=== PATIENT | male | born 1950 | race Two or more races ===

== ENCOUNTER 2018-12-13 04:21 | Inpatient (IN) | payer OTHER ==
[~2018-12-13] VITALS: Ht 170.2 cm; Wt 62.1 kg
[~2018-12-13 04:21] MED LIST: ASACOL HD800 MG
[2018-12-13] MEDS ORDERED: PROTONIX40 MG PO (04:48)
--- NOTE | 2018-12-13 04:49 | NUR ---
PT ALERTA Y ORIENTADO X3, REFIERE DOLOR EN FLANCO RT Y RLQ DESDE HACE 3 TREVINO. REFIERE HERMINIA VISITADO LERNER GASTROENTEROLOGO MOOSE EL PACO DE MAKENNA Y HERMINIA RECIBIDO [place], REFIERE NO TENER MEJORIA Y DOLOR CONWAY AUMENTADO. REFIERE ARDOR AL ORINAR.
--- NOTE | 2018-12-13 05:33 | NUR ---
PACIENTE ALERTA Y ORIENTADO X3, CON BUEN PATRON RESPIRATORIO Y SIGNOS VITALES ESTABLES, REFIERE CLAUDIO DOLOR EN EL ABDOMEN. SE ABRE VENA CON ANGIO #18 PATENTE Y ANATOLIY DE EDEMA, SE ESTEBAN MUESTRAS Y SE ADMINISTRAN MEDICAMENTOS YING ORDENADOS. SE BRODERICK TRANQUILO EN CAMA, CON BARANDAS ELEVADAS Y FRENOS COLOCADOS.
--- NOTE | 2018-12-13 07:26 | NUR ---
SE RECIBE PTE ALERTA Y ORIENTADO X 3 ESFERAS, EN SHARYN NIVEL MAS BAJO, GLORIA DE IDENTIFICACION Y BARANDAS ELEVADAS POR PRECAUCION. SE OBSERVA CON BUEN PATRON RESPIRATORIO Y PIEL TIBIA AL TACTO. IV OATENTE Y ANATOLIY DE EDEMA O ERITEMA CON RINGER LACTATE @150ML/HR. PTE PENDIENTE A RESULTADOS DE LABORATORIO Y REALIZAR SONOGRAMA ABDOMINAL, EL MISMO NOTIFICADO A PERSONAL DE TURNO.
== END 2018-12-21 13:43 | disposition home or self-care (01) | DRG 445 ==
LOC: ER 04:21 → SURG 14:30 → SEC-K 14:30 → SURG 16:58 → SURH 12-14 16:56
PROVIDERS: ADMIT Surgery
PROC: BW40ZZZ Ultrasonography of Abdomen (ICD-10-PCS; principal; 2018-12-13)
PROC: BF37ZZZ Magnetic Resonance Imaging (MRI) of Pancreas (ICD-10-PCS; 2018-12-13)
PROC: 4A033R1 Measurement of Arterial Saturation, Peripheral, Percutaneous Approach (ICD-10-PCS; 2018-12-15)
PROC: BW21ZZZ Computerized Tomography (CT Scan) of Abdomen and Pelvis (ICD-10-PCS; 2018-12-15)
PROC: B246ZZZ Ultrasonography of Right and Left Heart (ICD-10-PCS; 2018-12-17)
DX: K80.12 Calculus of gallbladder with acute and chronic cholecystitis without obstruction (principal); J90 Pleural effusion, not elsewhere classified; J98.11 Atelectasis; K51.80 Other ulcerative colitis without complications; E80.6 Other disorders of bilirubin metabolism; R09.02 Hypoxemia

== ENCOUNTER 2019-01-30 07:20 | Outpatient (CLI) | payer OTHER ==
[~2019-01-30 07:20] MED LIST changes: +PROTONIX40 MG PO
== END 2019-01-30 07:23 | disposition home or self-care (01) ==
LOC: MRI 07:20
DX: K80.10 Calculus of gallbladder with chronic cholecystitis without obstruction (principal)
CPT/HCPCS: 74181

== ENCOUNTER 2019-01-31 06:36 | Inpatient (IN) | payer OTHER ==
[~2019-01-31] VITALS: Ht 213.4 cm; Wt 5.0 kg
== END 2019-02-02 12:56 | disposition home or self-care (01) | DRG 419 ==
LOC: CIR.AMB 06:36 → O/R 15:38 → SURG 15:38 → SURH 02-01 14:59
PROVIDERS: ADMIT Specialist
PROC: 0FT44ZZ Resection of Gallbladder, Percutaneous Endoscopic Approach (ICD-10-PCS; principal; 2019-01-31 09:15)
DX: K80.00 Calculus of gallbladder with acute cholecystitis without obstruction (principal)

== ENCOUNTER 2019-10-24 06:10 | Outpatient (CLI) | payer OTHER | END 2019-10-24 06:24 | disposition home or self-care (01) | LOC: LAB 06:10 | DX: R97.21 Rising PSA following treatment for malignant neoplasm of prostate (principal) ==

== ENCOUNTER 2020-02-05 06:17 | Outpatient (CLI) | payer OTHER | END 2020-02-05 06:21 | disposition home or self-care (01) | LOC: LAB 06:17 | PROVIDERS: ATTEND General Practice | DX: N40.0 Benign prostatic hyperplasia without lower urinary tract symptoms (principal) ==

== ENCOUNTER 2020-03-04 06:25 | Outpatient (CLI) | payer OTHER | END 2020-03-04 13:59 | disposition home or self-care (01) | LOC: LAB 06:25 | PROVIDERS: ATTEND Urology | DX: R97.21 Rising PSA following treatment for malignant neoplasm of prostate (principal) ==

== ENCOUNTER 2020-03-13 12:03 | Outpatient (CLI) | payer OTHER | END 2020-03-13 12:07 | disposition home or self-care (01) | LOC: LAB 12:03 | PROVIDERS: ATTEND Urology | DX: R97.20 Elevated prostate specific antigen [PSA] (principal) ==

== ENCOUNTER 2020-04-03 07:13 | Outpatient (CLI) | payer OTHER | END 2020-04-03 10:14 | disposition home or self-care (01) | LOC: SONOGRAMA 07:13 | PROVIDERS: ATTEND Urology | DX: R97.20 Elevated prostate specific antigen [PSA] (principal) ==

== ENCOUNTER → 2020-10-14 06:19 | Outpatient (CLI) | payer OTHER | END | disposition home or self-care (01) | LOC: LAB 06:19 | PROVIDERS: ATTEND General Practice | DX: N40.0 Benign prostatic hyperplasia without lower urinary tract symptoms (principal) ==

== ENCOUNTER 2021-03-02 08:00 | Outpatient (CLI) | payer OTHER | END 2021-03-02 08:30 | disposition home or self-care (01) | LOC: PPH VACUNA 08:00 | DX: Z23 Encounter for immunization (principal) ==

== ENCOUNTER 2021-03-22 08:00 | Outpatient (CLI) | payer OTHER | END 2021-03-22 08:30 | disposition home or self-care (01) | LOC: PPH VACUNA 08:00 | DX: Z23 Encounter for immunization (principal) ==

== ENCOUNTER 2021-05-11 06:13 | Outpatient (CLI) | payer OTHER | END 2021-05-11 06:15 | disposition home or self-care (01) | LOC: LAB 06:13 | DX: D64.89 Other specified anemias (principal); E78.49 Other hyperlipidemia; E11.65 Type 2 diabetes mellitus with hyperglycemia; R10.84 Generalized abdominal pain; E66.8 Other obesity; K92.1 Melena; R97.20 Elevated prostate specific antigen [PSA]; E55.9 Vitamin D deficiency, unspecified; I82.529 Chronic embolism and thrombosis of unspecified iliac vein; I48.91 Unspecified atrial fibrillation ==

== ENCOUNTER 2022-03-04 19:02 | Emergency (ER) | payer OTHER ==
[~2022-03-04] VITALS: Ht 172.7 cm; Wt 63.5 kg
[2022-03-04] MEDS ORDERED: PROTONIX (20:31)
[2022-03-04] MEDS ORDERED: ZANTAC (20:32)
[2022-03-05] MEDS ORDERED: LEVSIN/SL0.125 MG SL (04:27)
[2022-03-05] MEDS ORDERED: PEPCID AC20 MG PO (04:27)
== END 2022-03-05 04:50 | disposition home or self-care (01) ==
LOC: ER 19:02
DX: K21.9 Gastro-esophageal reflux disease without esophagitis (principal); R10.13 Epigastric pain; K59.00 Constipation, unspecified; I10 Essential (primary) hypertension; Z91.041 Radiographic dye allergy status; Z20.822 Contact with and (suspected) exposure to COVID-19

== ENCOUNTER → 2022-03-14 06:14 | Outpatient (CLI) | payer OTHER ==
[~2022-03-14 06:14] MED LIST changes: +LEVSIN/SL0.125 MG SL; +PEPCID AC20 MG PO; +PROTONIX; +ZANTAC
== END | disposition home or self-care (01) ==
LOC: LAB 06:14
PROVIDERS: ATTEND General Practice
DX: N40.0 Benign prostatic hyperplasia without lower urinary tract symptoms (principal)

== ENCOUNTER 2022-11-24 06:11 | Outpatient (CLI) | payer OTHER | END 2022-11-24 06:12 | disposition home or self-care (01) | LOC: LAB 06:11 | DX: I10 Essential (primary) hypertension (principal); E78.2 Mixed hyperlipidemia; N40.1 Benign prostatic hyperplasia with lower urinary tract symptoms; E03.9 Hypothyroidism, unspecified ==

== ENCOUNTER 2023-08-08 20:29 | Emergency (ER) | payer OTHER ==
[~2023-08-08] VITALS: Ht 172.7 cm; Wt 64.4 kg
[2023-08-08 22:22] LABS: HEMATOCRIT 44.8 % (39.0-48.0); HEMOGLOBIN 15.7 g/dL (13-16.00); MEAN CELL VOLUME 91.2 fL (80.0-100.00); MEAN CORPUSCULAR HEMOGLOBIN 31.9 pg (27.00-32.0); MEAN CORPUSCULAR HGB CONC 34.9 g/dl (32.0-36.0); PLATELET COUNT 142 K/uL (150-450); RED BLOOD COUNT 4.91 M/uL (4.00-6.00); RED CELL DISTRIBUTION WIDTH 12.7 % (11.5-14.5)
[2023-08-08 22:25] LABS: URINE APPEARANCE Clear; URINE BILIRRUBIN Small (NEGATIVE); URINE BLOOD Small; URINE COLOR Orange; URINE GLUCOSE Negative (NEGATIVE); URINE LEUKOCYTE Small; URINE NITRATE Positive; URINE PROTEIN Trace (NEGATIVE)
[2023-08-08 22:29] LABS: URINE BACTERIA 8.8 uL (0.0-1933); URINE EPITHELIAL CELLS 2.4 uL (0.0-38.8)
[2023-08-08 22:35] LABS: URINE WBC 1.2 uL (0.0-23.2)
[2023-08-08 22:45] LABS: ALBUMIN 3.8 gm/dL (3.4-5.0); BILIRUBIN TOTAL 2.4 mg/dL (0.3-1.2); CALCIUM 9.4 mg/dL (8.5-10.1); CREATININE SERUM 1.25 mg/dL (0.70-1.30); GFR 56.46; GLOBULINA 3.7 G/DL (2.4-3.5); POTASSIUM 3.78 mEq/L (3.5-5.1); TOTAL PROTEIN 7.5 gm/dL (6.4-8.2)
[2023-08-09] MEDS ORDERED: TAMS0.4C PO (04:02)
[2023-08-09] MEDS ORDERED: MIRALAX17 GM PO (04:02)
[2023-08-09] MEDS ORDERED: CEPHALEXIN500 MG PO (04:02)
== END 2023-08-09 04:10 ==
LOC: ER 20:30
PROVIDERS: Emergency Medicine
DX: N40.1 Benign prostatic hyperplasia with lower urinary tract symptoms (principal); R33.8 Other retention of urine; Z91.041 Radiographic dye allergy status; K64.8 Other hemorrhoids; N39.0 Urinary tract infection, site not specified
CPT/HCPCS: 36415; 51702; 74176; 96372; 99284; J0696

== ENCOUNTER 2023-08-13 08:58 | Emergency (ER) | payer OTHER ==
[~2023-08-13] VITALS: Ht 172.7 cm; Wt 62.6 kg
[~2023-08-13 08:58] MED LIST changes: +CEPHALEXIN500 MG PO; +MIRALAX17 GM PO; +TAMS0.4C PO
[2023-08-13 12:08] LABS: PH,URINE 5.5 (5.0-8.0); URINE APPEARANCE Clear; URINE BILIRRUBIN Negative (NEGATIVE); URINE BLOOD Large; URINE COLOR Yellow; URINE GLUCOSE Negative (NEGATIVE); URINE LEUKOCYTE Trace; URINE NITRATE Negative; URINE PROTEIN 30 (NEGATIVE)
[2023-08-13 12:12] LABS: URINE BACTERIA 76.8 uL (0.0-1933); URINE EPITHELIAL CELLS 4.1 uL (0.0-38.8); URINE RBC 1610.1 uL (0.0-20.8); URINE WBC 29.5 uL (0.0-23.2)
== END 2023-08-13 14:37 | disposition home or self-care (01) ==
LOC: ER 08:59
DX: N40.1 Benign prostatic hyperplasia with lower urinary tract symptoms (principal); N13.8 Other obstructive and reflux uropathy; Z91.041 Radiographic dye allergy status

== ENCOUNTER 2023-08-13 17:38 | Emergency (ER) | payer OTHER ==
[~2023-08-13] VITALS: Ht 172.7 cm; Wt 62.6 kg
== END 2023-08-13 19:43 | disposition home or self-care (01) ==
LOC: ER 17:39
DX: N40.1 Benign prostatic hyperplasia with lower urinary tract symptoms (principal); Z91.041 Radiographic dye allergy status; R33.8 Other retention of urine